=== PATIENT | female | born 1980 | race Hispanic/Latino ===

== ENCOUNTER 2018-08-24 11:58 | Emergency (ER) | payer OTHER ==
[2018-08-24 12:17] VITALS: BMI 18.4
[2018-08-24] MEDS ORDERED: Sodium Chloride 0.9% 1,000 ML IV SCH (13:15)
--- NOTE | 2018-08-24 13:48 | ED PDOC ---
HPI: Abdomen Time Seen by Provider: 08/24/18 12:18 Chief Complaint (Nursing): Abdominal Pain Chief Complaint (Provider): Abdominal pain History Per: Patient Onset/Duration Of Symptoms: Hrs Outside of [place] travel?: No Location Of Pain/Discomfort: Periumbilical Quality Of Discomfort: Cramping Associated Symptoms: Nausea, Vomiting, Diarrhea Additional Complaint(s): Pt. is a healthy 38 y/o Female who was well until last night, when she awoke in the early am with crampy mid abdominal pain, nausea and 5-6 episodes of nonbl oody/nonbilious vomiting/diarrhea. Pt. reports eating chicken last night, but so did . No fevers. Past Medical History Vital Signs: Last Vital Signs Temp 97.5 F L 08/24/18 12:17 Pulse 103 H 08/24/18 12:17 Resp 17 08/24/18 12:17 BP 95/60 L 08/24/18 12:17 Pulse Ox 100 08/24/18 12:17 - Medical History PMH: No Chronic Diseases - Surgical History Surgical History: No Surg Hx - Family History Family History: States: No Known Family Hx - Home Medications Home Medications: Ambulatory Orders Medication Instructions Recorded Ondansetron ODT [Zofran ODT] 8 mg PO BID #10 odt 08/24/18 - Allergies Allergies/Adverse Reactions: Allergies Allergy/AdvReac Type Severity Reaction Status Date / Time Penicillins Allergy SWELLING Verified 08/24/18 12:16 Review of Systems Constitutional: Negative for: Fever, Chills Cardiovascular: Negative for: Chest Pain Respiratory: Negative for: Cough, Shortness of Breath Gastrointestinal: Positive for: Nausea, Vomiting, Abdominal Pain Genitourinary Female: Negative for: Dysuria Skin: Negative for: Rash Physical Exam - Reviewed Nursing Documentation Reviewed: Yes Vital Signs Reviewed: Yes - Physical Exam Appears: Positive for: Well, Non-toxic, Uncomfortable Head Exam: Positive for: ATRAUMATIC Skin: Positive for: Normal Color, Warm, Dry Eye Exam: Positive for: Normal appearance ENT: Positive for: Normal ENT Inspection Neck: Positive for: Normal Cardiovascular/Chest: Positive for: Regular Rate, Rhythm Respiratory: Positive for: Normal Breath Sounds Gastrointestinal/Abdominal: Positive for: Bowel Sounds, Soft, Tenderness (mild periumbilical tenderness). Negative for: Guarding, Rebound - Laboratory Results Result Diagrams: 08/24/18 13:25 08/24/18 13:25 - ECG O2 Sat by Pulse Oximetry: 100 Medical Decision Making Medical Decision Making: IVF NS given IV Toradol given IV Zofran given On reassessment, pt. reports feeling much better, no further n/v. Re-exams, abd. is soft/nt. Pt. tolerated po. Repeat vitals improved 116/74, hr 84. Disposition - Clinical Impression Clinical Impression: Acute gastroenteritis - Patient ED Disposition Is Patient to be Admitted: No Counseled Patient/Family Regarding: Studies Performed, Diagnosis, Need For Followup, Rx Given - Disposition Disposition: Routine/Home Disposition Time: 15:49 Condition: STABLE Additional Instructions: follow up with your PMD. Rest, increase fluids. Return to ED if worse, fevers, worsening pain or other concerns. Prescriptions: Ondansetron ODT [Zofran ODT] 8 mg PO BID #10 odt Instructions: Gastroenteritis (ED) Forms: [employer] ([place]), [facility] ED School/Work Excuse
[2018-08-24 13:55] LABS: BASO % 0.1 % (0.0-2.0); EOS % 0.2 % (0.0-4.0); HEMOGLOBIN 13.5 g/dL (12.0-16.0); LYMPH # 0.2 K/uL (1.0-4.3); LYMPH % 2.2 % (20.0-40.0); MEAN CELL VOLUME 82.8 fl (81.0-99.0); MEAN CORPUSCULAR HEMOGLOBIN 27.2 pg (27.0-31.0); MEAN CORPUSCULAR HGB CONC 32.8 g/dL (33.0-37.0); MEAN PLATELET VOLUME 10.9 fl (7.2-11.7); MONO # 0.3 K/uL (0.0-0.8); MONO % 3.1 % (0.0-10.0); NEUT # 9.3 K/uL (1.8-7.0); NEUT % 94.4 % (50.0-75.0); PLATELET COUNT 200 K/uL (130-400); RBC 4.96 Mil/uL (3.80-5.20); WHITE BLOOD COUNT 9.8 K/uL (4.8-10.8)
[2018-08-24 14:02] LABS: ALB/GLOB RATIO 1.5 (1.0-2.1); ALBUMIN 4.6 g/dL (3.5-5.0); ALT/SGPT 23 U/L (9-52); AST/SGOT 19 U/L (14-36); BLOOD UREA NITROGEN 18 mg/dl (7-17); CALCIUM 9.5 mg/dL (8.4-10.2); GFR NON-AFRICAN AMERICAN > 60; LIPASE 97 U/L (23-300); SQUAMOUS EPITHIAL 4 /hpf (0-5); URINE BACTERIA RARE (<OCC); URINE BILIRUBIN NEGATIVE (NEGATIVE); URINE BLOOD NEGATIVE (NEGATIVE); URINE CLARITY SLIGHTY-CLOUDY (Clear); URINE COLOR YELLOW (YELLOW); URINE GLUCOSE (UA) NEG (NEGATIVE); URINE LEUKOCYTE ESTERASE NEG Leu/uL (Negative); URINE PROTEIN 30 mg/dL (NEGATIVE); URINE UROBILINOGEN 0.2-1.0 mg/dL (0.2-1.0)
[2018-08-24 14:47] LABS: ANISOCYTOSIS SLIGHT; BANDS 5 % (0-2); LYMPHOCYTE 2 % (20-50); MONOCYTE 5 % (0-10); NEUTROPHIL 88 % (42-75); PLATELET ESTIMATE NORMAL (NORMAL); TOTAL CELLS COUNTED 100
[2018-08-24 15:44] VITALS: BP 116/49; PULSE 87; RESP 16; TEMP 98.3
[2018-08-24 15:50] VITALS: O2SAT 100
== END 2018-08-24 16:00 | disposition home or self-care (01) ==
LOC: H.ER 11:58
DX: K52.9 Noninfective gastroenteritis and colitis, unspecified (principal); Z88.0 Allergy status to penicillin
CPT/HCPCS: 80053; 81003; 81025; 83690; 85025; 96374; 96375; 99284; J1885; J2405; J7030